=== PATIENT | male | born 1955 | race Caucasian/White ===

== ENCOUNTER 2018-06-23 15:06 | Inpatient (IN) | payer SELFPAY ==
--- NOTE | 2018-06-23 15:27 | Emergency Department Report ---
Chief Complaint: High BP Stated Complaint: HBP/SOB Time Seen by Provider: 06/23/18 15:22 - HPI History of Present Illness: This is a 63 y.o. male that presents to the ED with SOB and elevated blood pressure since yesterday. No PMH alcohol abuse 6 pack per day - Exam Vital Signs: Vital Signs 06/23/18 15:25 Temperature 98 F Pulse Rate 89 Respiratory 18 Rate Blood Pressure 245/131 [Right] O2 Sat by Pulse 99 Oximetry MSE screening note: Focused history and physical exam performed. Due to findings the following was ordered: labs, ekg, & cxr Main ED for further evaluation ED Disposition for MSE Condition: Stable
[2018-06-23 15:54] LABS: Basophils # (Auto) 0.1 K/mm3 (0.0-0.1); Basophils % (Auto) 1.1 % (0.0-1.8); Eosinophils # (Auto) 0.1 K/mm3 (0.0-0.4); Eosinophils % (Auto) 0.9 % (0.0-4.3); Hematocrit 30.7 % (35.5-45.6); Hemoglobin 10.3 gm/dl (11.8-15.2); Lymphocytes # (Auto) 1.4 K/mm3 (1.2-5.4); Lymphocytes % (Auto) 13.9 % (13.4-35.0); Mean Corpuscular HGB Conc 34 % (32-34); Mean Corpuscular Volume 95 fl (84-94); Monocytes # (Auto) 0.6 K/mm3 (0.0-0.8); Monocytes % (Auto) 5.4 % (0.0-7.3); Platelet Count 266 K/mm3 (140-440); Red Blood Count 3.24 M/mm3 (3.65-5.03); Red Cell Distribution Width 17.1 % (13.2-15.2)
--- NOTE | 2018-06-23 15:57 | XRay Report ---
CHEST 2 VIEWS INDICATION: Chest discomfort. COMPARISON: None similar at this institution. FINDINGS: PA and lateral chest radiographs demonstrate normal cardiomediastinal silhouette. Slightly prominent lung markings centrally and towards the bases. Subtle costophrenic angle blunting bilaterally not entirely excluded for minimal fluid. No overt CHF, though minimal fluid or thickening also noted along the fissures. Mild lower spinal degenerative changes. CONCLUSION: No overt CHF, though minimal pleural fluid not entirely excluded, as described. Please correlate. Thank you for the opportunity to participate in this patient's care.
[2018-06-23 16:08] LABS: Albumin 3.4 g/dL (3.9-5); Calcium 8.9 mg/dL (8.4-10.2)
[2018-06-23] MEDS ORDERED: APRESOLINE IV ONE ×2 (16:29→18:04)
[2018-06-23] MEDS ORDERED: NACL 0.9% 500 ML 500 ML IV ONE (16:30)
[2018-06-23] MEDS ORDERED: PROVENTIL IH ONE (16:30)
[2018-06-23] MEDS ORDERED: KIONEX PO ONE (16:32)
[2018-06-23] MEDS ORDERED: BABY ASPIRIN PO ONE (16:32)
[2018-06-23] MEDS ORDERED: HumuLIN R IV ONE (16:39)
--- NOTE | 2018-06-23 16:40 | Emergency Department Report ---
ED General Adult HPI - General Chief complaint: High BP Stated complaint: HBP/SOB Time Seen by Provider: 06/23/18 15:22 Source: patient Mode of arrival: Ambulatory Limitations: Language Barrier - History of Present Illness Initial comments: stopper setter: Daysi Costa This is a 63-year-old gentleman. The patient reports that he does not have a [facility] doctor. He reports that he has no chronic medical conditions that he is aware of. The patient presents to the emergency room with a complaint of shortness of breath. He reports that it started yesterday. He reports that it is associated with central chest tightness. He reports no exacerbating or relieving factors that he is aware of. He denies headache, neck pain, abdominal pain, hematemesis, bright red blood per rectum, he does admits to increased urinary frequency, and denies lower extremity swelling. As far as patient knows, he has not had any issues with renal insufficiency. -: Gradual, days(s) Location: chest Radiation: non-radiation Severity scale (0 -10): 0 Consistency: constant Improves with: none Worsens with: none - Related Data Allergies Allergy/AdvReac Type Severity Reaction Status Date / Time No Known Allergies Allergy Verified 06/23/18 15:07 ED Review of Systems ROS: Stated complaint: HBP/SOB Other details as noted in HPI Constitutional: denies: fever Eyes: denies: eye discharge ENT: denies: congestion Respiratory: shortness of breath Cardiovascular: denies: edema Gastrointestinal: denies: abdominal pain, nausea, vomiting, melena, hematochezia Genitourinary: frequency Musculoskeletal: denies: back pain Skin: denies: lesions Neurological: denies: weakness ED Past Medical Hx - Past Medical History Previous Medical History?: No - Surgical History Past Surgical History?: No - Social History Smoking Status: Current Every Day Smoker Substance Use Type: Alcohol ED Physical Exam - General Limitations: Language Barrier General appearance: alert, in no apparent distress - Head Head exam: Present: atraumatic, normocephalic - Eye Eye exam: Present: normal appearance, EOMI. Absent: nystagmus - ENT ENT exam: Present: normal exam, normal orophraynx, mucous membranes moist, normal external ear exam - Neck Neck exam: Present: normal inspection, full ROM. Absent: tenderness, meningismus - Respiratory Respiratory exam: Present: normal lung sounds bilaterally. Absent: respiratory distress - Cardiovascular Cardiovascular Exam: Present: regular rate, normal rhythm, normal heart sounds. Absent: bradycardia, tachycardia, irregular rhythm, systolic murmur, diastolic murmur, rubs, gallop - GI/Abdominal GI/Abdominal exam: Present: soft. Absent: distended, tenderness, guarding, rebound, rigid, pulsatile mass - Rectal Rectal exam: Present: deferred - Extremities Exam Extremities exam: Present: normal inspection, full ROM, other (2+ pulses noted in the bilateral upper, lower extremities. Compartments soft. No long bony tenderness. The pelvis is stable.). Absent: calf tenderness - Back Exam Back exam: Present: normal inspection, full ROM. Absent: tenderness, CVA tenderness (R), paraspinal tenderness, vertebral tenderness - Neurological Exam Neurological exam: Present: alert, other (there is no facial droop. The tongue is midline. Extraocular movements are intact bilaterally. 5 out of 5 strength in 4 extremities bilaterally.) - Psychiatric Psychiatric exam: Present: flat affect - Skin Skin exam: Present: warm, dry, intact, normal color. Absent: rash ED Course Vital Signs 06/23/18 06/23/18 06/23/18 15:25 16:29 16:30 Temperature 98 F Pulse Rate 89 91 H 87 Respiratory 18 25 H 20 Rate Blood Pressure 247/141 Blood Pressure 245/131 [Right] O2 Sat by Pulse 99 92 99 Oximetry ED Medical Decision Making - Lab Data Result diagrams: 06/23/18 15:42 06/23/18 15:42 Vital Signs 06/23/18 06/23/18 06/23/18 15:25 16:29 16:30 Temperature 98 F Pulse Rate 89 91 H 87 Respiratory 18 25 H 20 Rate Blood Pressure 247/141 Blood Pressure 245/131 [Right] O2 Sat by Pulse 99 92 99 Oximetry Lab Results 06/23/18 06/23/18 Range/Units 15:42 15:42 WBC 10.2 (4.5-11.0) K/mm3 RBC 3.24 L (3.65-5.03) M/mm3 Hgb 10.3 L (11.8-15.2) gm/dl Hct 30.7 L (35.5-45.6) % MCV 95 H (84-94) fl MCH 32 (28-32) pg MCHC 34 (32-34) % RDW 17.1 H (13.2-15.2) % Plt Count 266 (140-440) K/mm3 Lymph % (Auto) 13.9 (13.4-35.0) % [place] % (Auto) 5.4 (0.0-7.3) % Eos % (Auto) 0.9 (0.0-4.3) % Baso % (Auto) 1.1 (0.0-1.8) % Lymph # 1.4 (1.2-5.4) K/mm3 [place] # 0.6 (0.0-0.8) K/mm3 Eos # 0.1 (0.0-0.4) K/mm3 Baso # 0.1 (0.0-0.1) K/mm3 Seg Neutrophils % 78.7 H (40.0-70.0) % Seg Neutrophils # 8.0 H (1.8-7.7) K/mm3 Sodium 142 (137-145) mmol/L Potassium 5.8 H (3.6-5.0) mmol/L Chloride 105.9 (98-107) mmol/L Carbon Dioxide 17 L (22-30) mmol/L Anion Gap 25 mmol/L BUN 49 H (9-20) mg/dL Creatinine 6.6 H (0.8-1.5) mg/dL Estimated GFR 9 ml/min BUN/Creatinine Ratio 7 % Glucose 119 H (75-100) mg/dL Calcium 8.9 (8.4-10.2) mg/dL Total Bilirubin 0.30 (0.1-1.2) mg/dL AST 18 (5-40) units/L ALT 7 (7-56) units/L Alkaline Phosphatase 84 (35-129) units/L Total Protein 7.6 (6.3-8.2) g/dL Albumin 3.4 L (3.9-5) g/dL Albumin/Globulin Ratio 0.8 % - EKG Data -: EKG Interpreted by Ny EKG shows normal: sinus rhythm - EKG Data When compared to previous EKG there are: previous EKG unavailable 06/23/18 16:58 Sinus rhythm, 82 bpm, normal axis, QTC prolonged, left ventricular hypertrophy, prolonged QTC, symmetrically peaked T waves, abnormal EKG, no prior for comparison, this is not consistent with ST elevation myocardial infarction. - Radiology Data Radiology results: report reviewed, image reviewed Print Report Referring Physician: GAGE FRIAS Patient Name: KURT CAMACHO Date of : 1955 Sex: Male Report Date: 2018-06-23 Report Status: Finalized Findings [facility] [address] [place] [address] XRay Report Signed Patient: KURT CAMACHO MR#: [id number] : 1955 Acct:[id number] Age/Sex: 63 / M ADM Date: 06/23/18 Loc: ED Attending Dr: Ordering Physician: ARIANNA BARRERA Date of Service: 06/23/18 Procedure(s): XR chest routine 2V Accession Number(s): [id number] cc: ARIANNA BARRERA Fluoro Time In Minutes: CHEST 2 VIEWS INDICATION: Chest discomfort. COMPARISON: None similar at this institution. FINDINGS: PA and lateral chest radiographs demonstrate normal cardiomediastinal silhouette. Slightly prominent lung markings centrally and towards the bases. Subtle costophrenic angle blunting bilaterally not entirely excluded for minimal fluid. No overt CHF, though minimal fluid or thickening also noted along the fissures. Mild lower spinal degenerative changes. CONCLUSION: No overt CHF, though minimal pleural fluid not entirely excluded, as described. Please correlate. Thank you for the opportunity to participate in this patient's care. Transcribed By: RS Dictated By: DUNG LI MD Electronically Authenticated By: DUNG LI MD Signed Date/Time: 06/23/18 1557 - Medical Decision Making Differential diagnosis, including but not limited to: Hypertensive cardiomyopathy, congestive heart failure, renal insufficiency, hyperkalemia, metabolic acidosis Assessment and plan: 63-year-old gentleman with evidence of chronic renal insufficiency, hypertension, metabolic acidosis, hyperkalemia, for atypical EKG changes. The patient is afebrile and appears quite comfortable. I appreciate that the patient endorses that his symptoms started yesterday, but I suspect that they have been going on for some time, and that the patient has finally receive point where he has become clinically symptomatic. We will treat his hyperkalemia medically, and we have consulted nephrology, Dr. Monreal, who will follow in consultation. She was specifically informed about the patient's laboratory studies and vital signs. She is in agreement that a trial of medical therapy for hyperkalemia is appropriate. We will also initiate hydralazine for antihypertensive therapy. Discussed pertinent results using a stopper setter with family and patient, who verbalizes understanding. They are amenable to hospitalization for further evaluation and management. The case is presented to the Hospital physician, Dr. Chintan Brown, who accepts the patient to the medical service. Critical care attestation.: If time is entered above; I have spent that time in minutes in the direct care of this critically ill patient, excluding procedure time. ED Disposition Clinical Impression: Acute renal insufficiency, Hyperkalemia, Metabolic acidosis, Hypertensive urgency Disposition: 09 OP ADMIT IP TO THIS HOSP Is pt being admited?: Yes Does the pt Need Aspirin: Yes Condition: Good Referrals: JONE HERNANDEZ MD [Primary Care Provider] - 3-5 Days
[2018-06-23] MEDS ORDERED: D50W (25GM) Syringe IV ONE (17:00)
[2018-06-23] MEDS ORDERED: CALCIUM GLUCONATE 1,000 MG in NACL 0.9% 100 ML IV ONE (17:30)
[2018-06-23] MEDS ORDERED: COZAAR PO SCH (18:17)
[2018-06-23] MEDS ORDERED: APRESOLINE IV PRN (18:18)
[2018-06-23] MEDS ORDERED: COREG ONE (18:26)
[2018-06-23] MEDS ORDERED: COZAAR ONE (18:26)
[2018-06-23] MEDS ORDERED: NORVASC ONE (18:26)
[2018-06-23] MEDS: COREG PO SCH ×2 (18:28→22:04)
[2018-06-23] MEDS: NORVASC PO SCH (18:29)
--- NOTE | 2018-06-24 01:34 | Event Note ---
Date: 06/23/18 See H/p in reports ARF/CKD
[2018-06-24] MEDS ORDERED: SODIUM CHLORIDE FLUSH SYRINGE 10 ML IV PRN (01:51)
[2018-06-24] MEDS ORDERED: ZOFRAN IV PRN (01:51)
--- NOTE | 2018-06-24 02:17 | History and Physical Report ---
CHIEF COMPLAINT: 1. High blood pressure. 2. Shortness of breath. HISTORY OF PRESENT ILLNESS: A 63-year-old male with no significant past medical history, who presents with complaints of shortness of breath that started yesterday, also central chest tightness. In the Emergency Room, the patient was found to have blood pressure of 247/137. No renal failure history. Shortness of breath on minimal exertion is present. Orthopnea is present. PAST MEDICAL HISTORY: None. PAST SURGICAL HISTORY: None. SOCIAL HISTORY: He smokes over a pack a day. FAMILY HISTORY: None. REVIEW OF SYSTEMS: Review of systems is significant for shortness of breath and chest tightness. Otherwise, review of systems is negative. PHYSICAL EXAMINATION: GENERAL: An elderly male, cooperative during examination. VITAL SIGNS: Initial blood pressure was 245/131 and 247/141, temperature 98, pulse 91 and respirations 25. HEENT: Unremarkable. Pupils are equal and reactive. NECK: Supple, no lymphadenopathy, no thyromegaly. LUNGS: Clear to auscultation and percussion. Good air entry. CARDIOVASCULAR: S1, S2 heard. No gallop, no murmur, no rub. Apical impulse in left fifth intercostal space and midclavicular line. ABDOMEN: Soft and benign. No hepatosplenomegaly. No guarding, no rigidity. Hernial orifices are normal. EXTREMITIES: Good pedal pulses. No pedal edema. CENTRAL NERVOUS SYSTEM: Alert and oriented x 4, nonfocal examination. SKIN: Normal. LABORATORY DATA AND IMAGING STUDIES: Labs are significant for white count of 10,200, H and H is 10.3 and 30.7, platelet count is 266,000. Sodium is 142, potassium is 5.8, BUN and creatinine is 49 and 6.6. Troponin is 0.093. Albumin is 3.4. EKG shows tachycardia, heart rate of 100, LVH by voltage criteria. Chest x-ray is within normal limits. ASSESSMENT AND PLAN: 1.Hypertensive emergency. The patient was given multiple doses of IV hydralazine in the Emergency Room. The patient also initiated initially on losartan, but because of kidney failure, changed to hydralazine 50 q. 8 hours as well Coreg 12.5 q 12Hours and amlodipine 10 mg once a day. Cardene drip if necessary. We will observe for a couple of hours and if the blood pressure comes down, we will send him to telemetry. 2. Acute kidney injury/chronic kidney disease. The patient probably has chronic kidney disease with superimposed acute kidney injury. IV fluids for now. Nephrology consult requested. 3. Chest tightness. We will get a Lexiscan in the morning. 4. Dyspnea on exertion, probably secondary to hypertensive crisis. We will also get an echocardiogram. 5. Nicotine dependence. Nicotine patch. 6. Deep venous thrombosis prophylaxis. Heparin 5000 q. 12 hours and gastrointestinal prophylaxis. JOB# [id number] BRODY/GWENDOLYN RIOS
[2018-06-24] MEDS: APRESOLINE PO SCH ×4 (02:44→17:23)
[2018-06-24] MEDS: HEPARIN SUB-Q SCH ×3 (02:45→21:07)
[2018-06-24] MEDS: SODIUM CHLORIDE FLUSH SYRINGE 10 ML IV SCH ×3 (02:45→21:08)
[2018-06-24] MEDS: NACL 0.45% 1000 ML 1,000 ML IV SCH (02:45)
[2018-06-24 05:40] LABS: Chol/HDL Ratio 3.38 %
[2018-06-24] MEDS ORDERED: HABITROL TD ONE (08:00)
[2018-06-24] MEDS ORDERED: LEXISCAN IV ONE ×2 (08:02→08:12)
--- NOTE | 2018-06-24 09:59 | Treadmill Report ---
LEXISCAN STRESS TEST REPORT REASON FOR STUDY: Elevated troponin levels. STRESS TEST PROTOCOL: The patient received 0.4 mg of Lexiscan intravenously over 10 seconds. Technetium-99m tetrofosmin was subsequently injected. Baseline ECG, sinus bradycardia. Lexiscan ECG, no ischemic changes. No chest pain. No arrhythmias. IMPRESSION: Electrocardiographically negative stress test. Nuclear imaging report to follow. JOB# [id number] DARLIN/GWENDOLYN RIOS
[2018-06-24] MEDS: COREG PO SCH ×2 (10:35→21:08)
[2018-06-24] MEDS ORDERED: AFLURIA QUAD 2018-2019 SYRINGE IM ONE (12:00)
--- NOTE | 2018-06-24 13:11 | Consultation ---
History of Present Illness - Reason for Consult Consult date: 06/24/18 acute renal failure, accelerated hypertension - History of Present Illness Mr. Myers is a 63yo gentleman who presented to the ED with shortness of breath. He was initially evaluated at an outpatient clinic and was advised to go to the ED as his "blood pressure was very high". He denies chest pain, nausea, vomiting. He reports that he has never been seen by a physician until yesterday. As such, he denies a history of hypertension and kidney disease. In the ED, patient was noted to have a BP of 245/131 . Labs were notable for K 5.8, Creatinine 6.6 He denies decline in UOP, hematuria, hemoptysis, epistaxis. He denies NSAID use. Presently, he reports that his breathing has improved. He has no complaints Past History Past Medical History: No medical history Past Surgical History: No surgical history Social history: alcohol abuse (drinks 6 pack daily) Family history: no significant family history Medications and Allergies Allergies Allergy/AdvReac Type Severity Reaction Status Date / Time No Known Allergies Allergy Verified 06/23/18 15:07 Home Medications Medication Instructions Recorded Confirmed Last Taken Type No Known Home Medications [No 06/23/18 06/23/18 Unknown History Reported Home Medications] Active Meds: Active Medications Acetaminophen (Tylenol) 650 mg PO Q4H PRN PRN Reason: Pain MILD(1-3)/Fever >100.5/BRUNSON Amlodipine Besylate (Norvasc) 10 mg PO QDAY [facility] Last Admin: 06/23/18 18:29 Dose: 10 mg Documented by: Carvedilol (Coreg) 25 mg PO BID [facility] Last Admin: 06/23/18 22:04 Dose: 25 mg Documented by: Heparin Sodium (Porcine) (Heparin) 5,000 unit SUB-Q Q12HR [facility] Last Admin: 06/24/18 02:45 Dose: 5,000 unit Documented by: Hydralazine HCl (Apresoline) 10 mg IV Q1H PRN PRN Reason: Blood Pressure Hydralazine HCl (Apresoline) 100 mg PO Q8H [facility] Sodium Chloride (Nacl 0.45% 1000 Ml) 1,000 mls @ 75 mls/hr IV DIRECT [facility] Last Admin: 06/24/18 02:45 Dose: 75 mls/hr Documented by: Ondansetron HCl (Zofran) 4 mg IV Q8H PRN PRN Reason: Nausea And Vomiting Pneumococcal Polyvalent Vaccine (Pneumovax 23) 0.5 ml IM .ONCE ONE Stop: 06/25/18 12:01 Sodium Chloride (Sodium Chloride Flush Syringe 10 Ml) 10 ml IV BID KENN Last Admin: 06/24/18 02:45 Dose: 10 ml Documented by: Sodium Chloride (Sodium Chloride Flush Syringe 10 Ml) 10 ml IV PRN PRN PRN Reason: LINE FLUSH Review of Systems All systems: negative Exam - Vital Signs Vital signs: Vital Signs Temp Pulse Resp BP Pulse Ox 98 F 89 18 245/131 99 06/23/18 15:25 06/23/18 15:25 06/23/18 15:25 06/23/18 15:25 06/23/18 15:25 - General Appearance General appearance: well-developed, well-nourished EENT: ATNC, other (poor dentition) Respiratory: Clear to Ascultation Heart: regular, S1S2 Gastrointestinal: Present: normal. Absent: tenderness, distended Integumentary: no rash Neurologic: no focal deficit Musculoskeletal: Present: other (no edema) Psychiatric: cooperative Results - Lab Results 06/23/18 15:42 06/24/18 12:42 Most recent lab results Calcium 8.9 mg/dL (8.4-10.2) 06/23/18 15:42 Assessment and Plan Impression: * Acute kidney injury vs new ESRD * Accelerated hypertension * Hyperkalemia * Metabolic acidosis * Anemia * Alcohol abuse Plan: * Renal prognosis is guarded - discussed likelihood of requiring hemodialysis * Will start 24h urine CrCl * Obtain renal ultrasound * Obtain serologic work up * Continue current antiHTN medications * Renal diet * Dose medications for renal function * Avoid potential nephrotoxins * CIWA protocol per primary team
[2018-06-24 13:44] LABS: Calcium 8.2 mg/dL (8.4-10.2)
[2018-06-24 14:34] LABS: Hepatitis C Virus Antibody Non-Reactive (NonReactive)
[2018-06-24 15:09] LABS: Hepatitis B Surface Antigen Non-Reactive (Negative)
--- NOTE | 2018-06-24 15:25 | Progress Note ---
Assessment and Plan Assessment and plan: Hypertensive emergency - Patient has elevated cardiac enzymes - Patient was treated with IV medications and currently controlled with by mouth medications - We'll continue to monitor and adjust medications as needed Chest pain and shortness of breath - Likely due to the hypertensive emergency - Currently resolved - Stress test was done and negative for acute ischemia Acute renal failure likely due to hypertensive emergency - Creatinine yesterday was 6.6 in today to 7.1 - Nephrology is on board Disposition - Continue inpatient care History Interval history: Patient was seen and evaluated this morning, patient didn't have any complaints. Chest and SOB resolved. Hospitalist Physical - Physical exam Narrative exam: Not in cardiopulmonary distress. The patient appeared well nourished and normally developed. Vital signs as documented. Head exam is unremarkable. No scleral icterus . Neck is without jugular venous distension, thyromegaly, or carotid bruits. Lungs are clear to auscultation. Cardiac exam reveals regular rate and Rhythm. First and second heart sounds normal. No murmurs, rubs or gallops. Abdominal exam reveals normal bowel sounds, no masses, no organomegaly and no aortic enlargement. Extremities are nonedematous and both femoral and pedal pulses are normal. BACTERIOLOGY TECHNICIAN: Alert and oriented 3. No focal weakness. - Constitutional Vitals: Temp Pulse Resp BP Pulse Ox 97.4 F L 63 18 157/63 98 06/24/18 11:34 06/24/18 07:52 06/24/18 11:34 06/24/18 11:34 06/24/18 07:52 Results - Labs CBC & Chem 7: 06/23/18 15:42 06/24/18 12:42 Labs: Laboratory Last Values WBC 10.2 K/mm3 (4.5-11.0) 06/23/18 15:42 RBC 3.24 M/mm3 (3.65-5.03) L 06/23/18 15:42 Hgb 10.3 gm/dl (11.8-15.2) L 06/23/18 15:42 Hct 30.7 % (35.5-45.6) L 06/23/18 15:42 MCV 95 fl (84-94) H 06/23/18 15:42 MCH 32 pg (28-32) 06/23/18 15:42 MCHC 34 % (32-34) 06/23/18 15:42 RDW 17.1 % (13.2-15.2) H 06/23/18 15:42 Plt Count 266 K/mm3 (140-440) 06/23/18 15:42 Lymph % (Auto) 13.9 % (13.4-35.0) 06/23/18 15:42 [place] % (Auto) 5.4 % (0.0-7.3) 06/23/18 15:42 Eos % (Auto) 0.9 % (0.0-4.3) 06/23/18 15:42 Baso % (Auto) 1.1 % (0.0-1.8) 06/23/18 15:42 Lymph # 1.4 K/mm3 (1.2-5.4) 06/23/18 15:42 [place] # 0.6 K/mm3 (0.0-0.8) 06/23/18 15:42 Eos # 0.1 K/mm3 (0.0-0.4) 06/23/18 15:42 Baso # 0.1 K/mm3 (0.0-0.1) 06/23/18 15:42 Seg Neutrophils % 78.7 % (40.0-70.0) H 06/23/18 15:42 Seg Neutrophils # 8.0 K/mm3 (1.8-7.7) H 06/23/18 15:42 Sodium 142 mmol/L (137-145) 06/24/18 12:42 Potassium 4.9 mmol/L (3.6-5.0) 06/24/18 12:42 Chloride 107.0 mmol/L (98-107) 06/24/18 12:42 Carbon Dioxide 18 mmol/L (22-30) L 06/24/18 12:42 Anion Gap 22 mmol/L 06/24/18 12:42 BUN 54 mg/dL (9-20) H 06/24/18 12:42 Creatinine 7.1 mg/dL (0.8-1.5) H 06/24/18 12:42 Estimated GFR 8 ml/min 06/24/18 12:42 BUN/Creatinine Ratio 8 % 06/24/18 12:42 Glucose 109 mg/dL (75-100) H 06/24/18 12:42 Hemoglobin A1c 4.9 % (4-6) 06/24/18 03:07 Calcium 8.2 mg/dL (8.4-10.2) L 06/24/18 12:42 Total Bilirubin 0.30 mg/dL (0.1-1.2) 06/23/18 15:42 AST 18 units/L (5-40) 06/23/18 15:42 ALT 7 units/L (7-56) 06/23/18 15:42 Alkaline Phosphatase 84 units/L (35-129) 06/23/18 15:42 Troponin T 0.055 ng/mL (0.00-0.029) H 06/24/18 08:00 Total Protein 7.6 g/dL (6.3-8.2) 06/23/18 15:42 Albumin 3.4 g/dL (3.9-5) L 06/23/18 15:42 Albumin/Globulin Ratio 0.8 % 06/23/18 15:42 Triglycerides 117 mg/dL (2-149) 06/24/18 03:07 Cholesterol 132 mg/dL (50-199) 06/24/18 03:07 LDL Cholesterol Direct 79 mg/dL (50-130) 06/24/18 03:07 HDL Cholesterol 39 mg/dL (40-59) L 06/24/18 03:07 Cholesterol/HDL Ratio 3.38 % 06/24/18 03:07 Hepatitis A IgM Ab Non-reactive (NonReactive) 06/24/18 13:40 Hep Bs Antigen Non-reactive (Negative) 06/24/18 13:40 Hep B Core IgM Ab Non-reactive (NonReactive) 06/24/18 13:40 Hepatitis C Antibody Non-reactive (NonReactive) 06/24/18 13:40 Active Medications - Current Medications Current Medications: Generic Name Dose Route Start Last Admin Trade Name Freq PRN Reason Stop Dose Admin Acetaminophen 650 mg 06/24/18 01:51 Tylenol PO Q4H PRN Pain MILD(1-3)/Fever >100.5/BRUNSON Amlodipine Besylate 10 mg 06/23/18 18:17 06/23/18 18:29 Norvasc PO 10 mg QDAY KENN Administration Carvedilol 25 mg 06/23/18 18:17 06/23/18 22:04 Coreg PO 25 mg BID KENN Administration Heparin Sodium (Porcine) 5,000 unit 06/24/18 02:00 06/24/18 02:45 Heparin SUB-Q 5,000 unit Q12HR KENN Administration Hydralazine HCl 10 mg 06/23/18 18:18 Apresoline IV Q1H PRN Blood Pressure Hydralazine HCl 100 mg 06/24/18 09:00 Apresoline PO Q8H KENN Sodium Chloride 1,000 mls @ 75 mls/hr 06/24/18 02:00 06/24/18 02:45 Nacl 0.45% 1000 Ml IV 75 mls/hr DIRECT KENN Administration Nicotine 14 mg 06/25/18 08:00 Habitrol TD QDAY KENN Ondansetron HCl 4 mg 06/24/18 01:51 Zofran IV Q8H PRN Nausea And Vomiting Pneumococcal Polyvalent Vaccine 0.5 ml 06/25/18 12:00 Pneumovax 23 IM 06/25/18 12:01 .ONCE ONE Sodium Chloride 10 ml 06/24/18 02:00 06/24/18 02:45 Sodium Chloride Flush Syringe 10 Ml IV 10 ml BID KENN Administration Sodium Chloride 10 ml 06/24/18 01:51 Sodium Chloride Flush Syringe 10 Ml IV PRN PRN LINE FLUSH
[2018-06-24] MEDS: NORVASC PO SCH (15:49)
[2018-06-24] MEDS: HABITROL TD SCH (16:01)
--- NOTE | 2018-06-24 20:30 | Treadmill Report ---
THALLIUM REPORT REASON FOR STUDY: Chest pain. IMAGING PROTOCOL: The patient received Tc-99m tetrofosmin for stress and rest imaging. Imaging for all procedures was completed 30-90 minutes following the initial injection of Technetium 99m Tetrofosmin. SPECT imaging in the 180 degree arc was performed in the right anterior oblique projection. Computerized reconstruction of the images was performed for analysis. NUCLEAR IMAGING RESULTS: Normal left ventricular cavity size with no change from stress to rest. Distribution of radionuclide within the left ventricle revealed a small area of photo-induction involving the anteroapical region. The degree of photo-induction is mild. Rest imaging showed complete improvement in this defect. In addition, there is a medium size area of photo-induction involving the inferior wall. The degree of photo-induction is moderate. Rest imaging does not show any significant improvement in this defect. Gated SPECT imaging revealed mild global left ventricular hypokinesis. The calculated left ventricular ejection fraction is 46%. IMPRESSION: Small reversible anteroapical defect. Medium size fixed inferior wall defect. Mild global left ventricular hypokinesis. EF 46%. These findings suggest mild reversible ischemia in the left anterior descending coronary artery territory. In addition, there is suggestion of prior infarction in the right coronary artery territory. JOB# [id number] DARLIN/GWENDOLYN RIOS
[2018-06-25] MEDS: APRESOLINE PO SCH ×3 (01:03→17:09)
[2018-06-25] MEDS: NACL 0.45% 1000 ML 1,000 ML IV SCH ×2 (02:17→17:10)
[2018-06-25 07:32] LABS: Basophils # (Auto) 0.1 K/mm3 (0.0-0.1); Eosinophils # (Auto) 0.1 K/mm3 (0.0-0.4); Eosinophils % (Auto) 2.7 % (0.0-4.3); Hematocrit 24.5 % (35.5-45.6); Hemoglobin 8.2 gm/dl (11.8-15.2); Lymphocytes # (Auto) 0.9 K/mm3 (1.2-5.4); Lymphocytes % (Auto) 17.5 % (13.4-35.0); Mean Corpuscular HGB Conc 34 % (32-34); Mean Corpuscular Volume 94 fl (84-94); Monocytes # (Auto) 0.3 K/mm3 (0.0-0.8); Monocytes % (Auto) 4.7 % (0.0-7.3); Platelet Count 211 K/mm3 (140-440); Red Cell Distribution Width 16.8 % (13.2-15.2)
[2018-06-25 08:53] LABS: Albumin 2.5 g/dL (3.9-5); BUN/Creatinine Ratio 9; Blood Urea Nitrogen 60 mg/dL (9-20); Calcium 7.9 mg/dL (8.4-10.2); Hemolysis Index 3
[2018-06-25 09:02] LABS: Alanine Aminotransferase < 5 units/L (7-56)
--- NOTE | 2018-06-25 10:41 | Ultrasound Report ---
PROCEDURE: US RENAL BILAT TECHNIQUE: Grayscale and Doppler imaging of the bilateral kidneys was performed HISTORY: WIN COMPARISONS: None. FINDINGS: The right kidney measures 11 cm in length. There is mildly increased echogenicity of the renal cortex . There is normal cortical thickness. There is no hydronephrosis. There is no echogenic focus or mass . The left kidney measures 10.5 cm in length. There is mildly increased echogenicity. Normal cortical t hickness. No hydronephrosis. No echogenic focus or mass. The bladder is nondistended. No obvious abnormality. IMPRESSION: Mildly increased echogenicity of the bilateral renal parenchyma, compatible with medical renal diseas e. No hydronephrosis. No echogenic focus or mass. This document is electronically signed by Zamzam Romero MD., June 25 2018 10:39:19 AM ET
[2018-06-25] MEDS: HEPARIN SUB-Q SCH ×2 (10:42→23:00)
[2018-06-25] MEDS: NORVASC PO SCH (10:45)
[2018-06-25] MEDS: COREG PO SCH ×2 (10:45→23:00)
[2018-06-25] MEDS: HABITROL TD SCH (10:45)
[2018-06-25] MEDS: SODIUM CHLORIDE FLUSH SYRINGE 10 ML IV SCH ×2 (10:46→23:00)
[2018-06-25] MEDS ORDERED: PNEUMOVAX 23 IM ONE (12:00)
--- NOTE | 2018-06-25 13:43 | Progress Note ---
Assessment and Plan - Patient Problems (1) Acute renal insufficiency Current Visit: Yes Status: Acute Plan to address problem: She would acute renal failure. Has not had much success as of recent with BUN/creatinine remains 7. Will await any further recommendations for renal. Now continue IV volume hydration and observe. Avoid nephrotoxic agents. (2) Hyperkalemia Current Visit: Yes Status: Acute (3) Hypertensive urgency Current Visit: Yes Status: Acute Plan to address problem: Into new Coreg amlodipine hydralazine. Blood pressure is now much better control. (4) Chest pain Current Visit: Yes Status: Acute Plan to address problem: As resolved. Most likely secondary to uncontrolled hypertension. Now better with antihypertensives. History Interval history: Patient Hospital course complicated yesterday and today by uncontrolled hypert ension better. Patient also is not having anymore chest pain. Hospitalist Physical - Constitutional Vitals: Temp Pulse Resp BP Pulse Ox 97.6 F 72 18 146/72 100 06/25/18 11:23 06/25/18 11:23 06/25/18 11:23 06/25/18 11:23 06/25/18 11:23 General appearance: Present: no acute distress - EENT Eyes: Present: PERRL, EOM intact ENT: hearing intact, clear oral mucosa, dentition normal - Respiratory Respiratory effort: normal Respiratory: bilateral: CTA, diminished - Cardiovascular Rhythm: regular Heart Sounds: Absent: systolic murmur, diastolic murmur - Extremities Extremities: no ischemia, pulses intact, pulses symmetrical, No edema, normal temperature, normal color Peripheral Pulses: within normal limits - Abdominal General gastrointestinal: soft, non-tender, non-distended, normal bowel sounds - Integumentary Integumentary: Present: clear, warm, dry - Psychiatric Psychiatric: appropriate mood/affect, intact judgment & insight, memory intact - Neurologic Neurologic: CNII-XII intact Results - Labs CBC & Chem 7: 06/25/18 06:56 06/25/18 06:56 Labs: Laboratory Last Values WBC 5.4 K/mm3 (4.5-11.0) 06/25/18 06:56 RBC 2.60 M/mm3 (3.65-5.03) L 06/25/18 06:56 Hgb 8.2 gm/dl (11.8-15.2) L 06/25/18 06:56 Hct 24.5 % (35.5-45.6) L D 06/25/18 06:56 MCV 94 fl (84-94) 06/25/18 06:56 MCH 32 pg (28-32) 06/25/18 06:56 MCHC 34 % (32-34) 06/25/18 06:56 RDW 16.8 % (13.2-15.2) H 06/25/18 06:56 Plt Count 211 K/mm3 (140-440) 06/25/18 06:56 Lymph % (Auto) 17.5 % (13.4-35.0) 06/25/18 06:56 King % (Auto) 4.7 % (0.0-7.3) 06/25/18 06:56 Eos % (Auto) 2.7 % (0.0-4.3) 06/25/18 06:56 Baso % (Auto) 1.0 % (0.0-1.8) 06/25/18 06:56 Lymph # 0.9 K/mm3 (1.2-5.4) L 06/25/18 06:56 King # 0.3 K/mm3 (0.0-0.8) 06/25/18 06:56 Eos # 0.1 K/mm3 (0.0-0.4) 06/25/18 06:56 Baso # 0.1 K/mm3 (0.0-0.1) 06/25/18 06:56 Seg Neutrophils % 74.1 % (40.0-70.0) H 06/25/18 06:56 Seg Neutrophils # 4.0 K/mm3 (1.8-7.7) 06/25/18 06:56 Sodium 142 mmol/L (137-145) 06/25/18 06:56 Potassium 4.1 mmol/L (3.6-5.0) 06/25/18 06:56 Chloride 108.4 mmol/L (98-107) H 06/25/18 06:56 Carbon Dioxide 17 mmol/L (22-30) L 06/25/18 06:56 Anion Gap 21 mmol/L 06/25/18 06:56 BUN 60 mg/dL (9-20) H 06/25/18 06:56 Creatinine 7.0 mg/dL (0.8-1.5) H 06/25/18 06:56 Estimated GFR 8 ml/min 06/25/18 06:56 BUN/Creatinine Ratio 9 % 06/25/18 06:56 Glucose 93 mg/dL (75-100) 06/25/18 06:56 Hemoglobin A1c 4.9 % (4-6) 06/24/18 03:07 Calcium 7.9 mg/dL (8.4-10.2) L 06/25/18 06:56 Total Bilirubin 0.20 mg/dL (0.1-1.2) 06/25/18 06:56 AST 10 units/L (5-40) 06/25/18 06:56 ALT < 5 units/L (7-56) L 06/25/18 06:56 Alkaline Phosphatase 53 units/L (35-129) 06/25/18 06:56 Troponin T 0.055 ng/mL (0.00-0.029) H 06/24/18 08:00 Total Protein 5.5 g/dL (6.3-8.2) L D 06/25/18 06:56 Albumin 2.5 g/dL (3.9-5) L 06/25/18 06:56 Albumin/Globulin Ratio 0.8 % 06/25/18 06:56 Triglycerides 117 mg/dL (2-149) 06/24/18 03:07 Cholesterol 132 mg/dL (50-199) 06/24/18 03:07 LDL Cholesterol Direct 79 mg/dL (50-130) 06/24/18 03:07 HDL Cholesterol 39 mg/dL (40-59) L 06/24/18 03:07 Cholesterol/HDL Ratio 3.38 % 06/24/18 03:07 Hepatitis A IgM Ab Non-reactive (NonReactive) 06/24/18 13:40 Hep Bs Antigen Non-reactive (Negative) 06/24/18 13:40 Hep B Core IgM Ab Non-reactive (NonReactive) 06/24/18 13:40 Hepatitis C Antibody Non-reactive (NonReactive) 06/24/18 13:40 Active Medications - Current Medications Current Medications: Generic Name Dose Route Start Last Admin Trade Name Freq PRN Reason Stop Dose Admin Acetaminophen 650 mg 06/24/18 01:51 Tylenol PO Q4H PRN Pain MILD(1-3)/Fever >100.5/BRUNSON Amlodipine Besylate 10 mg 06/23/18 18:17 06/25/18 10:45 Norvasc PO 10 mg QDAY KENN Administration Carvedilol 25 mg 06/23/18 18:17 06/25/18 10:45 Coreg PO 25 mg BID KENN Administration Heparin Sodium (Porcine) 5,000 unit 06/24/18 02:00 06/25/18 10:42 Heparin SUB-Q 5,000 unit Q12HR KENN Administration Hydralazine HCl 10 mg 06/23/18 18:18 Apresoline IV Q1H PRN Blood Pressure Hydralazine HCl 100 mg 06/24/18 09:00 06/25/18 10:45 Apresoline PO 100 mg Q8H KENN Administration Sodium Chloride 1,000 mls @ 75 mls/hr 06/24/18 02:00 06/25/18 02:17 Nacl 0.45% 1000 Ml IV 75 mls/hr DIRECT KENN Administration Nicotine 14 mg 06/24/18 17:00 06/25/18 10:45 Habitrol TD 14 mg QDAY KENN Administration Ondansetron HCl 4 mg 06/24/18 01:51 Zofran IV Q8H PRN Nausea And Vomiting Sodium Chloride 10 ml 06/24/18 02:00 06/25/18 10:46 Sodium Chloride Flush Syringe 10 Ml IV 10 ml BID KENN Administration Sodium Chloride 10 ml 06/24/18 01:51 Sodium Chloride Flush Syringe 10 Ml IV PRN PRN LINE FLUSH
--- NOTE | 2018-06-25 14:00 | Progress Note ---
Assessment and Plan Impression: * Acute kidney injury vs new ESRD --Renal u/s: right 11cm, left 10.5cm, mildly increased echogenicity --Hep B/C neg * Accelerated hypertension * Hyperkalemia * Metabolic acidosis * Anemia * Alcohol abuse Plan: * Renal prognosis is guarded - have discussed likelihood of requiring hemodialysis; no emergent/urgent need at this time as lytes are stable and no signs/sx of uremia/fluid overload * 24h urine CrCl in progress - per RN, specimen discarded yesterday; recollect started at 10pm * Serologic work up pending; ANCA, C3, C4, SPEP; UA, UPCR, urine lytes, urine eos remain uncollected * Continue current antiHTN medications * Start NaBicarb * Renal diet * Dose medications for renal function * Avoid potential nephrotoxins * CIWA protocol per primary team Subjective Date of service: 06/25/18 Interval history: No acute events overnight. Patient denies nausea/vomiting, loss of appetite, SOB. Objective - Vital Signs Vital signs: Vital Signs - 12hr 06/25/18 06/25/18 06/25/18 04:00 08:27 11:23 Temperature 98.0 F 98.6 F 97.6 F Pulse Rate 64 75 72 Respiratory 18 18 18 Rate Blood Pressure 155/70 145/66 146/72 O2 Sat by Pulse 97 98 100 Oximetry - General Appearance General appearance: well-developed, well-nourished EENT: ATNC Respiratory: Present: Clear to Ascultation Cardiology: regular, S1S2 Gastrointestinal: normal, no tenderness, no distended Integumentary: no rash, warm and dry Musculoskeletal: other (no edema) Psychiatric: cooperative - Lab 06/25/18 06:56 06/25/18 06:56 Most recent lab results Calcium 7.9 mg/dL (8.4-10.2) L 06/25/18 06:56 Medications & Allergies - Medications Allergies/Adverse Reactions: Allergies No Known Allergies Allergy (Verified 06/23/18 15:07) Home Medications: Home Medications Medication Instructions Recorded Confirmed Last Taken Type No Known Home Medications [No 06/23/18 06/23/18 Unknown History Reported Home Medications] Active Medications: Generic Name Dose Route Start Last Admin Trade Name Freq PRN Reason Stop Dose Admin Acetaminophen 650 mg 06/24/18 01:51 Tylenol PO Q4H PRN Pain MILD(1-3)/Fever >100.5/BRUNSON Amlodipine Besylate 10 mg 06/23/18 18:17 06/25/18 10:45 Norvasc PO 10 mg QDAY KENN Administration Carvedilol 25 mg 06/23/18 18:17 06/25/18 10:45 Coreg PO 25 mg BID KENN Administration Heparin Sodium (Porcine) 5,000 unit 06/24/18 02:00 06/25/18 10:42 Heparin SUB-Q 5,000 unit Q12HR KENN Administration Hydralazine HCl 10 mg 06/23/18 18:18 Apresoline IV Q1H PRN Blood Pressure Hydralazine HCl 100 mg 06/24/18 09:00 06/25/18 10:45 Apresoline PO 100 mg Q8H KENN Administration Sodium Chloride 1,000 mls @ 75 mls/hr 06/24/18 02:00 06/25/18 02:17 Nacl 0.45% 1000 Ml IV 75 mls/hr DIRECT KENN Administration Nicotine 14 mg 06/24/18 17:00 06/25/18 10:45 Habitrol TD 14 mg QDAY KENN Administration Ondansetron HCl 4 mg 06/24/18 01:51 Zofran IV Q8H PRN Nausea And Vomiting Sodium Chloride 10 ml 06/24/18 02:00 06/25/18 10:46 Sodium Chloride Flush Syringe 10 Ml IV 10 ml BID KENN Administration Sodium Chloride 10 ml 06/24/18 01:51 Sodium Chloride Flush Syringe 10 Ml IV PRN PRN LINE FLUSH
[2018-06-25 22:42] LABS: Creatinine 24 Hour,Urine 0.7 (0.8-2.8); Creatinine,Urine 83.8 mg/dL (0.1-20.0)
[2018-06-25] MEDS: SODIUM BICARBONATE PO SCH (23:00)
[2018-06-26] MEDS: APRESOLINE PO SCH ×3 (02:09→16:21)
[2018-06-26 06:52] LABS: Calcium 7.5 mg/dL (8.4-10.2)
--- NOTE | 2018-06-26 09:34 | Progress Note ---
Subjective Interval history: Patient was seen today for follow-up on multiple renal related issues Events of this hospitalization noted Patient denies having any chest pain pressure or shortness of breath Vitals labs intake output medications were reviewed Social history: Reviewed Allergies: Reviewed Family history: Reviewed Physical examination HEENT: Oral mucosa moist no pallor or icterus Neck: Supple no JVD Chest: Clear to auscultation anteriorly CVS: Regular rate and rhythm S1 and S2 heard Abdomen: Soft nontender no suprapubic masses no organomegaly appreciable Extremity: Dry skin less than 1+ peripheral edema Musculoskeletal: No joint effusion noted in knees and ankle Neurological: Alert awake Dermatology: No petechial rashes Psychiatry: No evidence of any agitation and aggression noted Assessment and plan Renal failure likely advanced chronic kidney disease patient admitted with hyperkalemia and metabolic acidosis hypertension, no emergent indication for renal replacement therapy however patient has been educated at length that initiation of renal replacement therapy may be required given the degree and severity of renal failure, he has been educated about the degree and severity of renal failure currently creatinine has not changed in the last 48 hours Will follow-up on the pending labs Will order workup for anemia Adequately counseled and educated regarding all the renal related issues including anemia, hyperparathyroidism, vitamin D problems Hypertension well controlled patient is currently on amlodipine, carvedilol, hydralazine Metabolic acidosis currently and sodium bicarbonate twice a day, bicarbonate still not satisfactory currently around 18 Hypocalcium anemia due to renal failure 24-hour urine collection not done appropriately total protein 1.072 g History of alcohol abuse Patient was adequately counseled and educated regarding multiple renal related issues Pertinent lab findings were discussed with patient, patient does exhibit good understanding of renal issues Renal prognosis: Very poor We'll continue to follow and make recommendation from renal standpoint Objective - Vital Signs Vital signs: Vital Signs - 12hr 06/25/18 06/26/18 06/26/18 23:00 00:04 03:48 Temperature 98.0 F 98.0 F Pulse Rate 69 71 70 Respiratory 18 18 18 Rate Blood Pressure 120/60 139/61 129/64 O2 Sat by Pulse 99 99 Oximetry 06/26/18 08:50 Temperature 98.0 F Pulse Rate 75 Respiratory 18 Rate Blood Pressure 129/57 O2 Sat by Pulse 99 Oximetry - Lab 06/25/18 06:56 06/26/18 05:52 Most recent lab results Calcium 7.5 mg/dL (8.4-10.2) L 06/26/18 05:52 Urine Creatinine 83.8 mg/dL (0.1-20.0) H 06/25/18 Unknown Ur Total Protein 24 Hr 1072.00 mg/dL (2-200) H 06/25/18 Unknown Urine Total Protein 134 mg/dL (5-11.8) H 06/25/18 Unknown Medications & Allergies - Medications Allergies/Adverse Reactions: Allergies No Known Allergies Allergy (Verified 06/23/18 15:07) Home Medications: Home Medications Medication Instructions Recorded Confirmed Last Taken Type No Known Home Medications [No 06/23/18 06/23/18 Unknown History Reported Home Medications] Active Medications: Generic Name Dose Route Start Last Admin Trade Name Freq PRN Reason Stop Dose Admin Acetaminophen 650 mg 06/24/18 01:51 Tylenol PO Q4H PRN Pain MILD(1-3)/Fever >100.5/BRUNSON Amlodipine Besylate 10 mg 06/23/18 18:17 06/25/18 10:45 Norvasc PO 10 mg QDAY KENN Administration Carvedilol 25 mg 06/23/18 18:17 06/25/18 23:00 Coreg PO 25 mg BID KENN Administration Heparin Sodium (Porcine) 5,000 unit 06/24/18 02:00 06/25/18 23:00 Heparin SUB-Q 5,000 unit Q12HR KENN Administration Hydralazine HCl 10 mg 06/23/18 18:18 Apresoline IV Q1H PRN Blood Pressure Hydralazine HCl 100 mg 06/24/18 09:00 06/26/18 02:09 Apresoline PO 100 mg Q8H KENN Administration Sodium Chloride 1,000 mls @ 75 mls/hr 06/24/18 02:00 06/25/18 17:10 Nacl 0.45% 1000 Ml IV 75 mls/hr DIRECT KENN Administration Nicotine 14 mg 06/24/18 17:00 06/25/18 10:45 Habitrol TD 14 mg QDAY KENN Administration Ondansetron HCl 4 mg 06/24/18 01:51 Zofran IV Q8H PRN Nausea And Vomiting Sodium Bicarbonate 1,200 mg 06/25/18 22:00 06/25/18 23:00 Sodium Bicarbonate PO 1,200 mg BID KENN Administration Sodium Chloride 10 ml 06/24/18 02:00 06/25/18 23:00 Sodium Chloride Flush Syringe 10 Ml IV 10 ml BID KENN Administration Sodium Chloride 10 ml 06/24/18 01:51 Sodium Chloride Flush Syringe 10 Ml IV PRN PRN LINE FLUSH
[2018-06-26] MEDS: HABITROL TD SCH (09:40)
[2018-06-26] MEDS: COREG PO SCH ×2 (09:40→22:43)
[2018-06-26] MEDS: SODIUM BICARBONATE PO SCH ×2 (09:40→22:44)
[2018-06-26] MEDS: HEPARIN SUB-Q SCH ×2 (09:40→22:43)
[2018-06-26] MEDS: NORVASC PO SCH (09:40)
[2018-06-26] MEDS: SODIUM CHLORIDE FLUSH SYRINGE 10 ML IV SCH ×2 (09:41→22:45)
[2018-06-26] MEDS: NACL 0.45% 1000 ML 1,000 ML IV SCH (09:53)
[2018-06-26 10:44] LABS: Iron 65 ug/dL (49-181); Total Iron Binding Capacity 159 mcg/dL (250-450)
--- NOTE | 2018-06-26 14:26 | Progress Note ---
Assessment and Plan Hypertensive emergency - Patient has elevated cardiac enzymes - Patient was treated with IV medications and currently controlled with by mouth medications - We'll continue to monitor and adjust medications as needed Chest pain and shortness of breath - Likely due to the hypertensive emergency - Currently resolved - Stress test was done and negative for acute ischemia Acute renal failure likely due to hypertensive emergency - Creatinine yesterday 6.9 today, may need to start HD - Nephrology is on board Disposition - Continue inpatient care Brief History: Mr. Myers is a 63yo gentleman who presented to the ED with shortness of breath. He was initially evaluated at an outpatient clinic and was advised to go to the ED as his "blood pressure was very high". In the ED, patient was noted to have a BP of 245/131 . Labs were notable for K 5.8, Creatinine 6.6. Hospitalist Physical: GENERAL: well-developed and well-nourished male lying on bed appeared to be in no discomfort. HEENT: Normocephalic. Atraumatic. No conjunctival congestion or icterus. Patient has moist mucous membranes. NECK: Supple. Trachea midline. CHEST/LUNGS: Clear to auscultated bilaterally, breathing nonlabored. No wheezes crackles or rhonchi. HEART/CARDIOVASCULAR: Regular in rate and rhythm. S1 and S2 positive. ABDOMEN: Abdomen is soft, nontender. Patient has normal bowel sounds. SKIN: There is no rash. Warm and dry. NEURO: No focal motor deficit. Follows command. MUSCULOSKELETAL: No joint effusion or tenderness. EXTRIMITY: No edema, no cyanosis or clubbing. PSYCH: Cooperative. Subjective Date of service: 06/26/18 Interval history: patient seen and examined discussed with family bedside Planned to start HD soon Patient denies any chest pain Objective - Constitutional Vitals: Vital Signs - 12hr 06/26/18 06/26/18 03:48 08:50 Temperature 98.0 F 98.0 F Pulse Rate 70 75 Respiratory 18 18 Rate Blood Pressure 129/64 129/57 O2 Sat by Pulse 99 99 Oximetry - Labs CBC & Chem 7: 06/25/18 06:56 06/27/18 05:09 Labs: Abnormal lab results 06/25/18 06/26/18 06/26/18 Range/Units Unknown 05:52 09:58 Carbon Dioxide 18 L (22-30) mmol/L BUN 59 H (9-20) mg/dL Creatinine 6.9 H (0.8-1.5) mg/dL Calcium 7.5 L (8.4-10.2) mg/dL TIBC 159 L (250-450) mcg/dL Urine Creatinine 83.8 H (0.1-20.0) mg/dL Ur Creatinine 24 Hour 0.7 L (0.8-2.8) Ur Total Protein 24 Hr 1072.00 H (2-200) mg/dL Urine Total Protein 134 H (5-11.8) mg/dL
[2018-06-26] MEDS: TYLENOL PO PRN (20:35)
[2018-06-27] MEDS: NACL 0.45% 1000 ML 1,000 ML IV SCH
[2018-06-27] MEDS ORDERED: ULTRAM PO ONE (01:00)
[2018-06-27] MEDS: TESSALON PERLES PO PRN ×2 (01:46→21:22)
[2018-06-27] MEDS: APRESOLINE PO SCH ×3 (01:47→18:25)
[2018-06-27 06:50] LABS: Calcium 7.7 mg/dL (8.4-10.2)
[2018-06-27] MEDS ORDERED: NACL 0.9% 100 ML IV PRN (09:30)
--- NOTE | 2018-06-27 09:32 | Progress Note ---
Subjective Interval history: Patient was seen today for follow-up on multiple renal related issues Events of this hospitalization noted metrics with patient's daughter who is Chinese speaking and presence of patient's nurse Patient has decided to proceed with hemodialysis with a Vas-Cath He wants to travel back to [place] after a few dialysis treatment Patient denies having any chest pain pressure or shortness of breath Vitals labs intake output medications were reviewed Social history: Reviewed Allergies: Reviewed Family history: Reviewed Physical examination HEENT: Oral mucosa moist no pallor or icterus Neck: Supple no JVD Chest: Clear to auscultation anteriorly CVS: Regular rate and rhythm S1 and S2 heard Abdomen: Soft nontender no suprapubic masses no organomegaly appreciable Extremity: Dry skin less than 1+ peripheral edema Musculoskeletal: No joint effusion noted in knees and ankle Neurological: Alert awake Dermatology: No petechial rashes Psychiatry: No evidence of any agitation and aggression noted Assessment and plan Renal failure severe no significant improvement in renal function patient and family has decided to proceed with initiation of renal replacement therapy This will be carried out in the form of Vas-Cath has patient wants to travel back to [place], catheter will be removed before discharge Had a long discussion yesterday with patient as well as family members as well as today Patient will receive at least 2 or 3 dialysis treatment when he is feeling better he would like to go back to [place], and consider further dialysis treatment there After discussing all options has been decided that patient will need a Vas-Cath placement Initiation of renal replacement therapy today Will give him 2 or 3 dialysis treatment Treat anemia with erythropoietin Has been adequately counseled and educated regarding the renal care plan Metabolic acidosis currently and sodium bicarbonate twice a day, bicarbonate still not satisfactory currently around 18 Hypocalcium anemia due to renal failure 24-hour urine collection not done appropriately total protein 1.072 g History of alcohol abuse Patient as well as family was adequately counseled and educated regarding multiple renal related issues We'll continue to follow and make recommendation from renal standpoint Objective - Vital Signs Vital signs: Vital Signs - 12hr 06/26/18 06/26/18 06/27/18 22:43 23:55 04:11 Temperature 97.9 F 97.9 F Pulse Rate 70 65 68 Respiratory 12 12 Rate Blood Pressure 118/59 130/60 134/62 O2 Sat by Pulse 95 98 Oximetry 06/27/18 08:37 Temperature 98.3 F Pulse Rate 69 Respiratory 18 Rate Blood Pressure 127/70 O2 Sat by Pulse 97 Oximetry - Lab 06/25/18 06:56 06/27/18 05:09 Most recent lab results Calcium 7.7 mg/dL (8.4-10.2) L 06/27/18 05:09 Urine Creatinine 83.8 mg/dL (0.1-20.0) H 06/25/18 Unknown Ur Total Protein 24 Hr 1072.00 mg/dL (2-200) H 06/25/18 Unknown Urine Total Protein 134 mg/dL (5-11.8) H 06/25/18 Unknown Medications & Allergies - Medications Allergies/Adverse Reactions: Allergies No Known Allergies Allergy (Verified 06/23/18 15:07) Home Medications: Home Medications Medication Instructions Recorded Confirmed Last Taken Type No Known Home Medications [No 06/23/18 06/23/18 Unknown History Reported Home Medications] Active Medications: Generic Name Dose Route Start Last Admin Trade Name Freq PRN Reason Stop Dose Admin Acetaminophen 650 mg 06/24/18 01:51 06/26/18 20:35 Tylenol PO 650 mg Q4H PRN Administration Pain MILD(1-3)/Fever >100.5/BRUNSON Amlodipine Besylate 10 mg 06/23/18 18:17 06/26/18 09:40 Norvasc PO 10 mg QDAY KENN Administration Benzonatate 200 mg 06/27/18 01:00 06/27/18 01:46 Tessalon Perles PO 200 mg Q8HR PRN Administration Cough Carvedilol 25 mg 06/23/18 18:17 06/26/18 22:43 Coreg PO 25 mg BID KENN Administration Heparin Sodium (Porcine) 5,000 unit 06/24/18 02:00 06/26/18 22:43 Heparin SUB-Q 5,000 unit Q12HR KENN Administration Hydralazine HCl 10 mg 06/23/18 18:18 Apresoline IV Q1H PRN Blood Pressure Hydralazine HCl 100 mg 06/24/18 09:00 06/27/18 01:47 Apresoline PO 100 mg Q8H KENN Administration Sodium Chloride 1,000 mls @ 75 mls/hr 06/24/18 02:00 06/27/18 00:00 Nacl 0.45% 1000 Ml IV 75 mls/hr DIRECT KENN Administration Nicotine 14 mg 06/24/18 17:00 06/26/18 09:40 Habitrol TD 14 mg QDAY KENN Administration Ondansetron HCl 4 mg 06/24/18 01:51 Zofran IV Q8H PRN Nausea And Vomiting Sodium Bicarbonate 1,300 mg 06/26/18 22:00 06/26/18 22:44 Sodium Bicarbonate PO 1,300 mg BID KENN Administration Sodium Chloride 10 ml 06/24/18 02:00 06/26/18 22:45 Sodium Chloride Flush Syringe 10 Ml IV 10 ml BID KENN Administration Sodium Chloride 10 ml 06/24/18 01:51 Sodium Chloride Flush Syringe 10 Ml IV PRN PRN LINE FLUSH
[2018-06-27] MEDS: SODIUM BICARBONATE PO SCH ×2 (09:47→21:23)
[2018-06-27] MEDS: HEPARIN SUB-Q SCH ×2 (09:48→21:23)
[2018-06-27] MEDS: COREG PO SCH ×2 (09:48→21:23)
[2018-06-27] MEDS: HABITROL TD SCH (09:48)
[2018-06-27] MEDS: NORVASC PO SCH (09:48)
[2018-06-27] MEDS: SODIUM CHLORIDE FLUSH SYRINGE 10 ML IV SCH ×2 (09:49→22:00)
[2018-06-27] MEDS ORDERED: SUBLIMAZE ONE (13:33)
[2018-06-27] MEDS ORDERED: VERSED ONE (13:33)
[2018-06-27] MEDS ORDERED: HEPARIN/NS 5000 UNIT/500ML(CATH LAB) 500 ML IR ONE (13:34)
[2018-06-27] MEDS ORDERED: NACL 0.9% 100 ML ONE (13:34)
[2018-06-27] MEDS ORDERED: XYLOCAINE 1%/ EPI 1:100,000 INFILTRATI ONE (13:34)
[2018-06-27] MEDS ORDERED: HEPARIN 10,000 UNITS/10 ML ONE (14:08)
--- NOTE | 2018-06-27 14:13 | Operative Report ---
Operative Report Operative Report: Exam: Ultrasound and fluoroscopic guided placement of Vas-cath Clinical indication: End-stage renal disease requiring dialysis access Date: 06/27/2018 Procedure: Following an expiration of the risks, benefits and alternatives; and written informed consent was obtained. The patient was brought to the injury Suite placed in supine position on the examination table. Initial ultrasound evaluation of the neck demonstrated a patent right internal jugular vein. The patient's right neck and chest wall were prepped and draped in the usual sterile fashion. 1% lidocaine was used for anesthesia. Under ultrasound guidance, the right internal jugular vein was cannulated with a 7 cm 18-gauge needle. A 0.035 guidewire was advanced into the IVC to document intravenous positioning and for anchoring. The needle was removed and following serial dilation over the guidewire under fluoroscopy, and 11.5 [place]an precursor fast cath was placed over the guidewire under fluoroscopy and advanced position the tip of the proximal right atrium. The guidewire was removed. Both ports flushed and aspirated easily and more than locked with appropriate volumes of heparin. The catheter was securely fastened of the neck using 3-0 Vicryl suture. Dermabond and a sterile dressings were then applied. The patient tolerated the procedure well. There were no immediate post procedure complications. Conscious sedation was not utilized secondary to patient's non-nothing by mouth status. Patient was given fentanyl for comfort. Continuous cardiopulmonary monitoring was utilized. Impression: Ultrasound and fuoroscopic guided placement of Vas-cath
--- NOTE | 2018-06-27 15:53 | Progress Note ---
Assessment and Plan Hypertensive emergency - Patient has elevated cardiac enzymes - Patient was treated with IV medications and currently controlled with by mouth medications - We'll continue to monitor and adjust medications as needed Chest pain and shortness of breath - Likely due to the hypertensive emergency - Currently resolved - Stress test was done and negative for acute ischemia Acute renal failure likely due to hypertensive emergency - renal function unchanged, plan to start HD from today - Nephrology is on board - patient is unfunded - CM notified Disposition - Continue inpatient care Brief History: Mr. Myers is a 63yo gentleman who presented to the ED with shortness of breath. He was initially evaluated at an outpatient clinic and was advised to go to the ED as his "blood pressure was very high". In the ED, patient was noted to have a BP of 245/131 . Labs were notable for K 5.8, Creatinine 6.6. Hospitalist Physical: GENERAL: well-developed and well-nourished male lying on bed appeared to be in no discomfort. HEENT: Normocephalic. Atraumatic. No conjunctival congestion or icterus. Patient has moist mucous membranes. NECK: Supple. Trachea midline. CHEST/LUNGS: Clear to auscultated bilaterally, breathing nonlabored. No wheezes crackles or rhonchi. HEART/CARDIOVASCULAR: Regular in rate and rhythm. S1 and S2 positive. ABDOMEN: Abdomen is soft, nontender. Patient has normal bowel sounds. SKIN: There is no rash. Warm and dry. NEURO: No focal motor deficit. Follows command. MUSCULOSKELETAL: No joint effusion or tenderness. EXTRIMITY: No edema, no cyanosis or clubbing. PSYCH: Cooperative. Subjective Date of service: 06/27/18 Interval history: patient seen and examined discussed with family bedside Planned to start HD today Patient denies any chest pain family wants to take him to [place] for HD setup patient is unfunded and undocumented Objective - Constitutional Vitals: Vital Signs - 12hr 06/27/18 06/27/18 06/27/18 04:11 08:37 11:54 Temperature 97.9 F 98.3 F Pulse Rate 68 69 63 Respiratory 12 18 18 Rate Blood Pressure 134/62 127/70 102/44 Blood Pressure [Right] O2 Sat by Pulse 98 97 97 Oximetry 06/27/18 11:56 Temperature 97.7 F Pulse Rate Respiratory Rate Blood Pressure Blood Pressure 104/48 [Right] O2 Sat by Pulse Oximetry - Labs CBC & Chem 7: 06/28/18 10:19 06/28/18 10:19 Labs: Abnormal lab results 06/27/18 Range/Units 05:09 Carbon Dioxide 17 L (22-30) mmol/L BUN 60 H (9-20) mg/dL Creatinine 6.7 H (0.8-1.5) mg/dL Calcium 7.7 L (8.4-10.2) mg/dL
[2018-06-27] MEDS ORDERED: NACL 0.9 (PRIMING MACHINE ONLY DIALYSIS) MC ONE (17:37)
[2018-06-28] MEDS: APRESOLINE PO SCH ×3 (01:30→22:10)
[2018-06-28 06:57] LABS: Calcium 7.7 mg/dL (8.4-10.2)
--- NOTE | 2018-06-28 09:05 | Progress Note ---
Subjective Interval history: Patient was seen today for follow-up on multiple renal related issues no acute complaints Events of 24-hour noted Multiple [place] speaking family members in the room Social history: Reviewed Allergies: Reviewed Family history: Reviewed Physical examination HEENT: Oral mucosa moist no pallor or icterus Neck: Supple no JVD Chest: Clear to auscultation anteriorly CVS: Regular rate and rhythm S1 and S2 heard Abdomen: Soft nontender no suprapubic masses no organomegaly appreciable Extremity: Dry skin less than 1+ peripheral edema Musculoskeletal: No joint effusion noted in knees and ankle Neurological: Alert awake Dermatology: No petechial rashes Psychiatry: No evidence of any agitation and aggression noted Assessment and plan End-stage renal disease: patient will need to continue her dialysis Dialysis catheter will be removed after 3 dialysis treatments are done Continued to monitor renal function and electrolytes hemoglobin Care plan has been discussed with patient's family members who are [place]- speaking We'll continue to follow and make recommendation from renal standpoint Objective - Vital Signs Vital signs: Vital Signs - 12hr 06/27/18 06/27/18 06/28/18 21:23 23:20 04:01 Temperature 98.4 F 98.7 F Pulse Rate 62 63 71 Respiratory 14 16 Rate Blood Pressure 141/72 141/65 131/64 O2 Sat by Pulse 99 96 Oximetry 06/28/18 07:42 Temperature 98.6 F Pulse Rate 62 Respiratory 16 Rate Blood Pressure 138/66 O2 Sat by Pulse 100 Oximetry - Lab 06/28/18 10:19 06/29/18 06:15 Most recent lab results Calcium 7.7 mg/dL (8.4-10.2) L 06/28/18 05:46 Urine Creatinine 83.8 mg/dL (0.1-20.0) H 06/25/18 Unknown Ur Total Protein 24 Hr 1072.00 mg/dL (2-200) H 06/25/18 Unknown Urine Total Protein 134 mg/dL (5-11.8) H 06/25/18 Unknown Medications & Allergies - Medications Allergies/Adverse Reactions: Allergies No Known Allergies Allergy (Verified 06/23/18 15:07) Home Medications: Home Medications Medication Instructions Recorded Confirmed Last Taken Type Carvedilol [Coreg] 25 mg PO BID #60 tablet 06/29/18 Unknown Rx Nicotine [Habitrol] 14 mg TD QDAY patch 06/29/18 Unknown Rx Sodium Bicarbonate 1,300 mg PO BID #60 tablet 06/29/18 Unknown Rx amLODIPine [Norvasc] 10 mg PO QDAY #30 tablet 06/29/18 Unknown Rx hydrALAZINE [Apresoline TAB] 100 mg PO Q8H #90 tab 06/29/18 Unknown Rx Active Medications: Generic Name Dose Route Start Last Admin Trade Name Freq PRN Reason Stop Dose Admin Acetaminophen 650 mg 06/24/18 01:51 06/26/18 20:35 Tylenol PO 650 mg Q4H PRN Administration Pain MILD(1-3)/Fever >100.5/BRUNSON Amlodipine Besylate 10 mg 06/23/18 18:17 06/27/18 09:48 Norvasc PO 10 mg QDAY KENN Administration Benzonatate 200 mg 06/27/18 01:00 06/27/18 21:22 Tessalon Perles PO 200 mg Q8HR PRN Administration Cough Carvedilol 25 mg 06/23/18 18:17 06/27/18 21:23 Coreg PO 25 mg BID KENN Administration Heparin Sodium (Porcine) 5,000 unit 06/24/18 02:00 06/27/18 21:23 Heparin SUB-Q 5,000 unit Q12HR KENN Administration Hydralazine HCl 10 mg 06/23/18 18:18 Apresoline IV Q1H PRN Blood Pressure Hydralazine HCl 100 mg 06/24/18 09:00 06/28/18 01:30 Apresoline PO 100 mg Q8H KENN Administration Sodium Chloride 1,000 mls @ 75 mls/hr 06/24/18 02:00 06/27/18 00:00 Nacl 0.45% 1000 Ml IV 75 mls/hr DIRECT KENN Administration Sodium Chloride 100 mls @ 999 mls/hr 06/27/18 09:30 Nacl 0.9% IV ELISA PRN Hypotension Nicotine 14 mg 06/24/18 17:00 06/27/18 09:48 Habitrol TD 14 mg QDAY KENN Administration Ondansetron HCl 4 mg 06/24/18 01:51 Zofran IV Q8H PRN Nausea And Vomiting Sodium Bicarbonate 1,300 mg 06/26/18 22:00 06/27/18 21:23 Sodium Bicarbonate PO 1,300 mg BID KENN Administration Sodium Chloride 10 ml 06/24/18 02:00 06/27/18 22:00 Sodium Chloride Flush Syringe 10 Ml IV 10 ml BID KENN Administration Sodium Chloride 10 ml 06/24/18 01:51 Sodium Chloride Flush Syringe 10 Ml IV PRN PRN LINE FLUSH
[2018-06-28] MEDS ORDERED: NACL 0.9% 100 ML IV PRN (09:30)
[2018-06-28] MEDS: SODIUM BICARBONATE PO SCH ×2 (09:40→22:09)
[2018-06-28] MEDS: HABITROL TD SCH (09:40)
[2018-06-28] MEDS: NORVASC PO SCH (09:41)
[2018-06-28] MEDS: HEPARIN SUB-Q SCH ×2 (09:42→22:09)
[2018-06-28] MEDS: COREG PO SCH ×2 (09:42→22:09)
[2018-06-28 10:24] LABS: Basophils # (Auto) 0.1 K/mm3 (0.0-0.1); Basophils % (Auto) 1.3 % (0.0-1.8); Eosinophils # (Auto) 0.2 K/mm3 (0.0-0.4); Eosinophils % (Auto) 3.7 % (0.0-4.3); Hematocrit 23.5 % (35.5-45.6); Hemoglobin 7.9 gm/dl (11.8-15.2); Lymphocytes # (Auto) 0.9 K/mm3 (1.2-5.4); Lymphocytes % (Auto) 14.7 % (13.4-35.0); Mean Corpuscular HGB Conc 34 % (32-34); Mean Corpuscular Volume 94 fl (84-94); Monocytes # (Auto) 0.4 K/mm3 (0.0-0.8); Monocytes % (Auto) 6.7 % (0.0-7.3); Platelet Count 221 K/mm3 (140-440); Red Blood Count 2.49 M/mm3 (3.65-5.03)
[2018-06-28 11:15] LABS: Albumin 2.7 g/dL (3.9-5); Calcium 8.3 mg/dL (8.4-10.2)
[2018-06-28] MEDS: NACL 0.45% 1000 ML 1,000 ML IV SCH (11:42)
[2018-06-28] MEDS: TYLENOL PO PRN (11:43)
--- NOTE | 2018-06-28 14:45 | Progress Note ---
Assessment and Plan Hypertensive emergency - Patient has elevated cardiac enzymes - Patient was treated with IV medications and currently controlled with by mouth medications - We'll continue to monitor and adjust medications as needed Chest pain and shortness of breath - Likely due to the hypertensive emergency - Currently resolved - Stress test was done and negative for acute ischemia Acute renal failure likely due to hypertensive emergency - renal function unchanged, started HD from yesterday - Nephrology is on board, plan for another rounds of HD today and tomorrow - patient is unfunded -family wants to drive him to [place] - vascath will be removed tomorrow after HD and then patient will be discharged with family Disposition - Continue inpatient care Brief History: Mr. Myers is a 63yo gentleman who presented to the ED with shortness of breath. He was initially evaluated at an outpatient clinic and was advised to go to the ED as his "blood pressure was very high". In the ED, patient was noted to have a BP of 245/131 . Labs were notable for K 5.8, Creatinine 6.6. Hospitalist Physical: GENERAL: well-developed and well-nourished male lying on bed appeared to be in no discomfort. HEENT: Normocephalic. Atraumatic. No conjunctival congestion or icterus. Lory ent has moist mucous membranes. NECK: Supple. Trachea midline. CHEST/LUNGS: Clear to auscultated bilaterally, breathing nonlabored. No wheezes crackles or rhonchi. HEART/CARDIOVASCULAR: Regular in rate and rhythm. S1 and S2 positive. ABDOMEN: Abdomen is soft, nontender. Patient has normal bowel sounds. SKIN: There is no rash. Warm and dry. NEURO: No focal motor deficit. Follows command. MUSCULOSKELETAL: No joint effusion or tenderness. EXTRIMITY: No edema, no cyanosis or clubbing. PSYCH: Cooperative. Subjective Date of service: 06/28/18 Interval history: patient seen and examined discussed with family bedside and by phone Patient denies any chest pain family wants to take him to [place] for HD setup patient is unfunded and undocumented s/p HD x2 today Objective - Constitutional Vitals: Vital Signs - 12hr 06/28/18 06/28/18 06/28/18 04:01 07:42 09:41 Temperature 98.7 F 98.6 F Pulse Rate 71 62 62 Respiratory 16 16 Rate Blood Pressure 131/64 138/66 138/66 O2 Sat by Pulse 96 100 Oximetry 06/28/18 06/28/18 06/28/18 09:42 11:35 12:00 Temperature 98.4 F Pulse Rate 62 62 66 Respiratory 16 Rate Blood Pressure 138/66 145/67 O2 Sat by Pulse 98 Oximetry - Labs CBC & Chem 7: 06/28/18 10:19 06/29/18 06:15 Labs: Abnormal lab results 06/28/18 06/28/18 06/28/18 Range/Units 05:46 10:19 10:19 RBC 2.49 L (3.65-5.03) M/mm3 Hgb 7.9 L (11.8-15.2) gm/dl Hct 23.5 L (35.5-45.6) % RDW 17.0 H (13.2-15.2) % Lymph # 0.9 L (1.2-5.4) K/mm3 Seg Neutrophils % 73.6 H (40.0-70.0) % Sodium 136 L (137-145) mmol/L Carbon Dioxide 21 L (22-30) mmol/L BUN 36 H 37 H (9-20) mg/dL Creatinine 4.8 H 5.2 H (0.8-1.5) mg/dL Glucose 122 H (75-100) mg/dL Calcium 7.7 L 8.3 L (8.4-10.2) mg/dL ALT 6 L (7-56) units/L Total Protein 5.7 L (6.3-8.2) g/dL Albumin 2.7 L (3.9-5) g/dL PTH Intact (15-65) pg/mL 06/28/18 Range/Units 10:19 RBC (3.65-5.03) M/mm3 Hgb (11.8-15.2) gm/dl Hct (35.5-45.6) % RDW (13.2-15.2) % Lymph # (1.2-5.4) K/mm3 Seg Neutrophils % (40.0-70.0) % Sodium (137-145) mmol/L Carbon Dioxide (22-30) mmol/L BUN (9-20) mg/dL Creatinine (0.8-1.5) mg/dL Glucose (75-100) mg/dL Calcium (8.4-10.2) mg/dL ALT (7-56) units/L Total Protein (6.3-8.2) g/dL Albumin (3.9-5) g/dL PTH Intact 135.5 H (15-65) pg/mL
[2018-06-28] MEDS: SODIUM CHLORIDE FLUSH SYRINGE 10 ML IV SCH ×2 (22:08→22:10)
[2018-06-29] MEDS: APRESOLINE PO SCH ×3 (03:30→18:45)
[2018-06-29] MEDS: NACL 0.45% 1000 ML 1,000 ML IV SCH (03:31)
[2018-06-29 06:52] LABS: Calcium 8.8 mg/dL (8.4-10.2)
--- NOTE | 2018-06-29 08:57 | Progress Note ---
Objective - Vital Signs Vital signs: Vital Signs - 12hr 06/28/18 06/28/18 06/28/18 21:00 22:09 22:14 Temperature Pulse Rate 64 62 Respiratory 18 Rate Blood Pressure 160/66 Blood Pressure [Right] O2 Sat by Pulse 99 Oximetry 06/28/18 06/29/18 06/29/18 23:00 03:29 08:08 Temperature 98.4 F 98.6 F 98.6 F Pulse Rate 62 65 71 Respiratory 13 18 16 Rate Blood Pressure 136/57 144/66 Blood Pressure 145/67 [Right] O2 Sat by Pulse 98 100 96 Oximetry - Lab 06/28/18 10:19 06/29/18 06:15 Most recent lab results Calcium 8.8 mg/dL (8.4-10.2) 06/29/18 06:15 Phosphorus 4.50 mg/dL (2.5-4.5) 06/28/18 10:19 Urine Creatinine 83.8 mg/dL (0.1-20.0) H 06/25/18 Unknown Ur Total Protein 24 Hr 1072.00 mg/dL (2-200) H 06/25/18 Unknown Urine Total Protein 134 mg/dL (5-11.8) H 06/25/18 Unknown Medications & Allergies - Medications Allergies/Adverse Reactions: Allergies No Known Allergies Allergy (Verified 06/23/18 15:07) Home Medications: Home Medications Medication Instructions Recorded Confirmed Last Taken Type No Known Home Medications [No 06/23/18 06/23/18 Unknown History Reported Home Medications] Active Medications: Generic Name Dose Route Start Last Admin Trade Name Freq PRN Reason Stop Dose Admin Acetaminophen 650 mg 06/24/18 01:51 06/28/18 11:43 Tylenol PO 650 mg Q4H PRN Administration Pain MILD(1-3)/Fever >100.5/BRUNSON Amlodipine Besylate 10 mg 06/23/18 18:17 06/28/18 09:41 Norvasc PO 10 mg QDAY KENN Administration Benzonatate 200 mg 06/27/18 01:00 06/27/18 21:22 Tessalon Perles PO 200 mg Q8HR PRN Administration Cough Carvedilol 25 mg 06/23/18 18:17 06/28/18 22:09 Coreg PO 25 mg BID KENN Administration Heparin Sodium (Porcine) 5,000 unit 06/24/18 02:00 06/28/18 22:09 Heparin SUB-Q 5,000 unit Q12HR KENN Administration Hydralazine HCl 10 mg 06/23/18 18:18 Apresoline IV Q1H PRN Blood Pressure Hydralazine HCl 100 mg 06/24/18 09:00 06/29/18 03:30 Apresoline PO 100 mg Q8H KENN Administration Sodium Chloride 1,000 mls @ 75 mls/hr 06/24/18 02:00 06/29/18 03:31 Nacl 0.45% 1000 Ml IV 75 mls/hr DIRECT KENN Administration Sodium Chloride 100 mls @ 999 mls/hr 06/28/18 09:30 Nacl 0.9% IV ELISA PRN Hypotension Nicotine 14 mg 06/24/18 17:00 06/28/18 09:40 Habitrol TD 14 mg QDAY KENN Administration Ondansetron HCl 4 mg 06/24/18 01:51 Zofran IV Q8H PRN Nausea And Vomiting Sodium Bicarbonate 1,300 mg 06/26/18 22:00 06/28/18 22:09 Sodium Bicarbonate PO 1,300 mg BID KENN Administration Sodium Chloride 10 ml 06/24/18 02:00 06/28/18 22:10 Sodium Chloride Flush Syringe 10 Ml IV 10 ml BID KENN Administration Sodium Chloride 10 ml 06/24/18 01:51 Sodium Chloride Flush Syringe 10 Ml IV PRN PRN LINE FLUSH
[2018-06-29] MEDS ORDERED: NACL 0.9% 100 ML IV PRN (09:00)
--- NOTE | 2018-06-29 09:00 | Progress Note ---
Subjective Interval history: Patient was seen today for follow-up on multiple renal related issues He is feeling much better ever since dialysis was started Vitals labs intake output medications were reviewed Social history: Reviewed Allergies: Reviewed Family history: Reviewed Physical examination HEENT: Oral mucosa moist no pallor or icterus Neck: Supple no JVD Chest: Clear to auscultation anteriorly CVS: Regular rate and rhythm S1 and S2 heard Abdomen: Soft nontender no suprapubic masses no organomegaly appreciable Extremity: Dry skin less than 1+ peripheral edema Musculoskeletal: No joint effusion noted in knees and ankle Neurological: Alert awake Dermatology: No petechial rashes Psychiatry: No evidence of any agitation and aggression noted Assessment and plan End-stage renal disease: Patient initiated on renal placement therapy feeling much better significant improvement in his labs, patient wants to travel to [place], at this time after his dialysis today his Vas-Cath can be removed Patient was advised to follow fluid restriction as well as strict renal diet, if he is not feeling well on the way then he will need to check in the nearest ER or call 911 Clinically he is asymptomatic he has been urinating between 3-5 times per day Metabolic acidosis: Currently in remission patient will need sodium bicarbonate 2 tablets twice a day to take in outpatient setting Hypocalcemia: Resolved current calcium is 8.8, PTH is 135, Malnutrition: Albumin 2.7 patient will need to stay with high protein diet Phosphorus is well controlled at 4.5, Anemia in end-stage renal disease current hemoglobin around 7.9 he will need a follow-up lab Will give erythropoietin 20,000 units subcutaneous today Patient's Vas-Cath will need to be removed after dialysis today All questions have been answered to the patient as well as family Language line was used for communication all questions were answered Family agrees to monitor the patient, and they understand that renal care plan Once he reaches [place] in the next 48 hours as family plans, he will need to check into the ER, to get his basic labs done to assess whether he will need dialysis there In my professional opinion patient will need to continue with hemodialysis for now 24-hour urine collection not done appropriately total protein 1.072 g History of alcohol abuse Patient was adequately counseled and educated regarding multiple renal related issues Pertinent lab findings were discussed with patient, patient does exhibit good understanding of renal issues Renal prognosis: Very poor We'll continue to follow and make recommendation from renal standpoint Objective - Vital Signs Vital signs: Vital Signs - 12hr 06/28/18 06/28/18 06/28/18 22:09 22:14 23:00 Temperature 98.4 F Pulse Rate 64 62 62 Respiratory 13 Rate Blood Pressure 160/66 Blood Pressure 145/67 [Right] O2 Sat by Pulse 98 Oximetry 06/29/18 06/29/18 03:29 08:08 Temperature 98.6 F 98.6 F Pulse Rate 65 71 Respiratory 18 16 Rate Blood Pressure 136/57 144/66 Blood Pressure [Right] O2 Sat by Pulse 100 96 Oximetry - Lab 06/28/18 10:19 06/29/18 06:15 Most recent lab results Calcium 8.8 mg/dL (8.4-10.2) 06/29/18 06:15 Phosphorus 4.50 mg/dL (2.5-4.5) 06/28/18 10:19 Urine Creatinine 83.8 mg/dL (0.1-20.0) H 06/25/18 Unknown Ur Total Protein 24 Hr 1072.00 mg/dL (2-200) H 06/25/18 Unknown Urine Total Protein 134 mg/dL (5-11.8) H 06/25/18 Unknown Medications & Allergies - Medications Allergies/Adverse Reactions: Allergies No Known Allergies Allergy (Verified 06/23/18 15:07) Home Medications: Home Medications Medication Instructions Recorded Confirmed Last Taken Type No Known Home Medications [No 06/23/18 06/23/18 Unknown History Reported Home Medications] Active Medications: Generic Name Dose Route Start Last Admin Trade Name Freq PRN Reason Stop Dose Admin Acetaminophen 650 mg 06/24/18 01:51 06/28/18 11:43 Tylenol PO 650 mg Q4H PRN Administration Pain MILD(1-3)/Fever >100.5/BRUNSON Amlodipine Besylate 10 mg 06/23/18 18:17 06/28/18 09:41 Norvasc PO 10 mg QDAY KENN Administration Benzonatate 200 mg 06/27/18 01:00 06/27/18 21:22 Tessalon Perles PO 200 mg Q8HR PRN Administration Cough Carvedilol 25 mg 06/23/18 18:17 06/28/18 22:09 Coreg PO 25 mg BID KENN Administration Heparin Sodium (Porcine) 5,000 unit 06/24/18 02:00 06/28/18 22:09 Heparin SUB-Q 5,000 unit Q12HR KENN Administration Hydralazine HCl 10 mg 06/23/18 18:18 Apresoline IV Q1H PRN Blood Pressure Hydralazine HCl 100 mg 06/24/18 09:00 06/29/18 03:30 Apresoline PO 100 mg Q8H KENN Administration Sodium Chloride 1,000 mls @ 75 mls/hr 06/24/18 02:00 06/29/18 03:31 Nacl 0.45% 1000 Ml IV 75 mls/hr DIRECT KENN Administration Sodium Chloride 100 mls @ 999 mls/hr 06/28/18 09:30 Nacl 0.9% IV ELISA PRN Hypotension Nicotine 14 mg 06/24/18 17:00 06/28/18 09:40 Habitrol TD 14 mg QDAY KENN Administration Ondansetron HCl 4 mg 06/24/18 01:51 Zofran IV Q8H PRN Nausea And Vomiting Sodium Bicarbonate 1,300 mg 06/26/18 22:00 06/28/18 22:09 Sodium Bicarbonate PO 1,300 mg BID KENN Administration Sodium Chloride 10 ml 06/24/18 02:00 06/28/18 22:10 Sodium Chloride Flush Syringe 10 Ml IV 10 ml BID KENN Administration Sodium Chloride 10 ml 06/24/18 01:51 Sodium Chloride Flush Syringe 10 Ml IV PRN PRN LINE FLUSH
[2018-06-29] MEDS: COREG PO SCH (09:22)
[2018-06-29] MEDS: NORVASC PO SCH (09:22)
[2018-06-29] MEDS: SODIUM BICARBONATE PO SCH (09:22)
[2018-06-29] MEDS: HABITROL TD SCH (09:23)
[2018-06-29] MEDS: HEPARIN SUB-Q SCH (09:23)
[2018-06-29] MEDS: SODIUM CHLORIDE FLUSH SYRINGE 10 ML IV SCH (09:25)
--- NOTE | 2018-06-29 12:05 | Discharge Summary ---
Providers - Providers Date of Admission: 06/23/18 17:01 Date of discharge: 06/29/18 Attending physician: MARKUS PLASENCIA 06/23/18 16:30 Consult to Physician [CONS] Stat Comment: DR JEN FELDER W/DR CHANG @[id number] Consulting Provider: KENNEY BROWN Physician Instructions: Reason For Exam: belkys hyperkalemia 06/27/18 09:29 Consult to Physician [CONS] Routine Comment: Consulting Provider: MADY JHAVERI Physician Instructions: Reason For Exam: Vas-Cath placement [facility] Condition: Good Pertinent studies: CXR exercise stress test renal US Hospital course: Brief History: Mr. Myers is a 63yo gentleman who presented to the ED with shortness of breath. He was initially evaluated at an outpatient clinic and was advised to go to the ED as his "blood pressure was very high". In the ED, patient was noted to have a BP of 245/131 . Labs were notable for K 5.8, Creatinine 6.6. He was admitted for further evaluation and management. Discharge diagnosis and management: Hypertensive emergency - Patient had elevated cardiac enzymes - Patient was treated with IV medications and currently controlled with by mouth medications - will continue current meds and adjust medications as needed outpt Chest pain and shortness of breath - Likely due to the hypertensive emergency - Currently resolved - Stress test was done and negative for acute ischemia Acute renal failure likely due to hypertensive emergency - renal function unchanged, started on HD - Nephrology is on board, will need to continue HD outpt - patient is unfunded -family wants to drive him to [place] - vascath was removed after HD and then patient was discharged with family Disposition - home with family. discussed the need for HD outpt, family willing to set up HD at [facility] Physical: GENERAL: well-developed and well-nourished male lying on bed appeared to be in no discomfort. HEENT: Normocephalic. Atraumatic. No conjunctival congestion or icterus. Patient has moist mucous membranes. NECK: Supple. Trachea midline. CHEST/LUNGS: Clear to auscultated bilaterally, breathing nonlabored. No wheezes crackles or rhonchi. HEART/CARDIOVASCULAR: Regular in rate and rhythm. S1 and S2 positive. ABDOMEN: Abdomen is soft, nontender. Patient has normal bowel sounds. SKIN: There is no rash. Warm and dry. NEURO: No focal motor deficit. Follows command. MUSCULOSKELETAL: No joint effusion or tenderness. EXTRIMITY: No edema, no cyanosis or clubbing. PSYCH: Cooperative. Disposition: DC-01 TO HOME OR SELFCARE Time spent for discharge: 34 minutes Core Measure Documentation - Palliative Care Palliative Care/ Comfort Measures: Not Applicable - Core Measures Any of the following diagnoses?: none Exam - Constitutional Vitals: Temp Pulse Resp BP Pulse Ox 99.7 F H 64 16 175/86 96 06/29/18 10:40 06/29/18 11:15 06/29/18 10:40 06/29/18 11:15 06/29/18 08:08 Plan Activity: advance as tolerated Weight Bearing Status: Non-Weight Bearing Diet: renal Wound: change dressing Special Instructions: record daily weights Additional Instructions: Need to start HD, family will arrange at [place] Follow up with: JONE HERNANDEZ MD [Primary Care Provider] - 3-5 Days Prescriptions: hydrALAZINE [Apresoline TAB] 100 mg PO Q8H #90 tab Carvedilol [Coreg] 25 mg PO BID #60 tablet amLODIPine [Norvasc] 10 mg PO QDAY #30 tablet Sodium Bicarbonate 1,300 mg PO BID #60 tablet
[2018-06-29] MEDS ORDERED: NACL 0.9 (PRIMING MACHINE ONLY DIALYSIS) MC ONE (13:14)
[2018-06-29 15:57] VITALS: BP 142/64
[2018-06-29 22:49] LABS: Albumin 2.8 g/dL (3.8-4.8); Gamma Globulin 1.2 g/dL (0.8-1.7)
[2018-07-03 18:14] LABS: Myeloperoxidase Antibody >800.0 AI (<1.0)
== END 2018-06-29 19:07 | disposition home or self-care (01) | DRG 286 ==
LOC: ED 15:06 → 4A 17:01
PROVIDERS: ADMIT Internal Medicine; ATTEND Internal Medicine
PROC: 3E0234Z Introduction of Serum, Toxoid and Vaccine into Muscle, Percutaneous Approach (ICD-10-PCS; 2018-06-25)
PROC: 02H633Z Insertion of Infusion Device into Right Atrium, Percutaneous Approach (ICD-10-PCS; principal; 2018-06-27)
PROC: B2141ZZ Fluoroscopy of Right Heart using Low Osmolar Contrast (ICD-10-PCS; 2018-06-27)
PROC: B244ZZZ Ultrasonography of Right Heart (ICD-10-PCS; 2018-06-27)
PROC: 5A1D70Z Performance of Urinary Filtration, Intermittent, Less than 6 Hours Per Day (ICD-10-PCS; 2018-06-27)
PROC: 5A1D70Z Performance of Urinary Filtration, Intermittent, Less than 6 Hours Per Day (ICD-10-PCS; 2018-06-28)
PROC: 5A1D70Z Performance of Urinary Filtration, Intermittent, Less than 6 Hours Per Day (ICD-10-PCS; 2018-06-29)
DX: I16.1 Hypertensive emergency (principal); N18.6 End stage renal disease; E87.2 Acidosis; N17.9 Acute kidney failure, unspecified; E46 Unspecified protein-calorie malnutrition; I16.0 Hypertensive urgency; E87.5 Hyperkalemia; F17.210 Nicotine dependence, cigarettes, uncomplicated; N18.9 Chronic kidney disease, unspecified; F10.10 Alcohol abuse, uncomplicated; Y90.9 Presence of alcohol in blood, level not specified; D64.9 Anemia, unspecified; E21.3 Hyperparathyroidism, unspecified; D63.1 Anemia in chronic kidney disease; I12.0 Hypertensive chronic kidney disease with stage 5 chronic kidney disease or end stage renal disease; Z68.21 Body mass index [BMI] 21.0-21.9, adult; Z23 Encounter for immunization; Z71.6 Tobacco abuse counseling
CPT/HCPCS: 36415; 36556; 71046; 76770; 76937; 78452; 80048; 80053; 80061; 80074; 82570; 82607; 82728; 82747; 82962; 83036; 83550; 83970; 84100; 84156; 84165; 84484; 85025; 85045; 86021; 86160; 90686; 90732; 93005; 93010; 93017; 93306; 94644; 99406; G0378; A9502; C1752; J0360; J0610; J1644; J1815; J2250; J2785; J3010; J7030; J7040